=== PATIENT | female | born 1940 | race Caucasian/White ===

== ENCOUNTER 2016-10-01 09:14 | Emergency (ER) | payer MEDICARE, OTHER ==
[2016-10-01 11:27] LABS: HEMOGLOBIN 12.5 gm/dl (12.3-15.3); RED BLOOD COUNT 4.04 M/UL (4.00-5.10); WHITE BLOOD COUNT 6.4 K/UL (4.5-11.0)
[2016-10-01 11:53] LABS: BUN/CREATININE RATIO 23 (0-10)
== END 2016-10-01 16:10 | disposition home or self-care (01) ==
LOC: ER1 09:14
PROVIDERS: Physician Assistant
DX: G45.9 Transient cerebral ischemic attack, unspecified (principal); Z79.82 Long term (current) use of aspirin; Z79.02 Long term (current) use of antithrombotics/antiplatelets; Z90.49 Acquired absence of other specified parts of digestive tract; Z85.3 Personal history of malignant neoplasm of breast
CPT/HCPCS: 36415; 70551; 71010; 80053; 82550; 82553; 83874; 84484; 85025; 93005; 93880; 99284

== ENCOUNTER 2022-01-14 15:21 | Emergency (ER) | payer MEDICARE, OTHER, MEDICAID ==
[2022-01-14 16:46] LABS: HEMOGLOBIN 13.4 gm/dl (12.3-15.3); RED BLOOD COUNT 4.33 M/UL (4.00-5.10); WHITE BLOOD COUNT 13.2 K/UL (4.5-11.0)
[2022-01-14 17:09] LABS: BUN/CREATININE RATIO 17 (0-10)
[2022-01-14] MEDS ORDERED: PAXLOVID CO-PA1 EACH PO (18:05)
[2022-01-14] MEDS ORDERED: LOPERAMIDE2 M1 PO (18:05)
[2022-01-14] MEDS ORDERED: ZOFRAN 4 MG TAB4 MG PO (18:05)
== END 2022-01-14 18:28 | disposition home or self-care (01) ==
LOC: ER1 15:21
PROVIDERS: Physician Assistant Medical
DX: U07.1 COVID-19 (principal); Z20.822 Contact with and (suspected) exposure to COVID-19; E78.5 Hyperlipidemia, unspecified; E11.9 Type 2 diabetes mellitus without complications; Z86.73 Personal history of transient ischemic attack (TIA), and cerebral infarction without residual deficits; I10 Essential (primary) hypertension; Z90.89 Acquired absence of other organs; Z90.49 Acquired absence of other specified parts of digestive tract; Z90.710 Acquired absence of both cervix and uterus
CPT/HCPCS: 71045; 80053; 82550; 82553; 84484; 85025; 93005; 96374; 99284; J2405; U0002

== ENCOUNTER → 2022-04-19 | Outpatient (CLI) | payer MEDICARE, OTHER ==
[~2022-04-19] MED LIST: LOPERAMIDE2 M1 PO; PAXLOVID CO-PA1 EACH PO; ZOFRAN 4 MG TAB4 MG PO
== END ==
LOC: MAMO 10:09
DX: Z12.31 Encounter for screening mammogram for malignant neoplasm of breast (principal); Z85.21 Personal history of malignant neoplasm of larynx
CPT/HCPCS: 77063; 77067